=== PATIENT | male | born 1950 | race Caucasian/White ===

== ENCOUNTER 2025-04-09 12:25 | Outpatient (OUT) | payer SELFPAY ==
--- OUTSIDE RECORDS SUMMARY | 2025-04-09 12:33 | XMS_ITS | Encounter Summary ---
Author Organization [employer] Address [facility] [place]-[id number] [address] [place] [address] Care Team Providers Care Automobile Body Repairer Name Role Phone Mally Monzon MD Primary Care Provider [phone] Encounter Details Date Type Department Care Team (Late st Contact Info) Description 11/07/2023 Orders Only [facility] [address] [place] [address] [place] [address] External, Scanning Provider Social History Tobacco Use Types Packs/Day Years Used Date Smoking Tobacco: Former Smokeless Tobacco: Never Alcohol Use Standard Drinks/Week Comments Yes 0 (1 standard drink = 0.6 oz pur e alcohol) AUDIT-C Answer Date Recorded Q1: How often do you have a drink containing alc ohol? Monthly or less 06/05/2020 Q2: How many drinks containi ng alcohol do you have on a typical day when you are drinking? 1 or 2 06/05/2020 Q3: How often do you have si x or more drinks on one occasion? Less than monthly 06/05/2020 PHQ-2 Answer Date Recorded Total Score 1 11/06/2023 Childcare Answer Date Recorded Childcare Unknown 12/19/2018 Employment Answer Date Recorded Employment Unknown 12/19/2018 Hunger Screening Answer Date Recorded Within the past 12 months we worried whether our food would run out before we got money to buy more. Never True 10/04/2023 Within the past 12 months th e food we bought just didn't last and we didn't have money to get more. Never True 10/04/2023 Purpose - Life Answer Date Recorded Purpose and direction in life Unknown Sex and Gender Information Value Date Recorded Sex Assigned at Not on file Legal Sex Male 11:32 AM EDT Gender Identity Not on file Sexual Orientation Not on file documented as of this encounter Plan of Treatment Not on file documented as of this encounter Goals Goal Patient Goal Type Associated Problems Recent Progress Patient-Stated? Author Safe transition home with spouse General Yes Neha Gordon, CLOTHING PATTERNMAKER Note: Evaluation of progress towards goal: Safe transition home with spouse documented as of this encounter Visit Diagnoses Not on filedocumented in this encounter Additional Health Concerns Assessment Noted Time PHQ-9 Depression Total Score: 1 11/06/19 24 2:00 PM EDT documented as of this encounter Care Teams Automobile Body Repairer Relationship Specialty Start Date End Date Mally Monzon MD [address] [facility] [place] [address] PCP - General Internal Medicine 10/04/23 documented as of this encounter
--- OUTSIDE RECORDS SUMMARY | 2025-04-09 12:33 | XMS_ITS | Encounter Summary ---
Author Organization [employer] Address [facility] [id number] [address] [place] [address] Care Team Providers Care Charge Poster Name Role Phone Mally Monzon MD Primary Care Provider [phone] Encounter Details Date Type Department Care Team (Late st Contact Info) Description 04/04/2025 Telephone [facility] [address] [place] [address] [address] [place] [address] Mally Monzon MD [address] [place], [place] [id number] Social History Tobacco Use Types Packs/Day Years Used Date Smoking Tobacco: Former Smokeless Tobacco: Never Alcohol Use Standard Drinks/Week Comments Yes 0 (1 standard drink = 0.6 oz pur e alcohol) rare AUDIT-C Answer Date Recorded Q1: How often [...] 06/05/2020 PHQ-2 Answer Date Recorded Total Score 3 11/06/2024 Childcare Answer Date Recorded Childcare Unknown 12/19/2018 Employment Answer Date Recorded Employment Unknown 12/19/2018 Hunger Screening Answer Date Recorded Within the past 12 months we worried whether our food would run out before we got money to buy more. Never True 11/06/2024 Within the past 12 months th e food we bought just didn't last and we didn't have money to get more. Never True 11/06/2024 Purpose - Life Answer Date Recorded Purpose and direction in life Unknown Sex and Gender Information Value Date Recorded Sex Assigned at Not on file Legal Sex Male 11:32 AM EDT Gender Identity Not on file Sexual Orientation Not on file documented as of this encounter Progress Notes * Serafin Casey - 04/04/2025 11:54 AM EDT Patient contacted for enrollment in chronic care management program. Left message on machine. Callback number provided. documented in this encounter Plan of Treatment Not on file documented as of this encounter Goals Goal Patient Goal Type Associated Problems Recent Progress Patient-Stated? Author Safe transition home with spouse General Yes Neha Gordon, PERSONNEL ASSOCIATE Note: Evaluation of progress towards goal: Safe transition home with spouse documented as of this encounter Visit Diagnoses Not on filedocumented in this encounter Additional Health Concerns Assessment Noted Time PHQ-9 Depression Total Score: 3 11/07/19 25 3:33 PM EDT documented as of this encounter Care Teams Charge Poster Relationship Specialty Start Date End Date Mally Monzon MD [address] [facility] [place] [address] PCP - General Internal Medicine 10/04/23 documented as of this encounter
--- OUTSIDE RECORDS SUMMARY | 2025-04-09 12:33 | XMS_ITS ---
Author Organization [employer] [facility] Address [facility] [id number] [address] [place] [address] Care Team Providers Care Tax Compliance Officer Name Role Phone Mally Monzon MD Primary Care Provider [phone] Dialysis Access Sites Type Status Location Placement Date Removal Da te Hemodialysis Catheter Triple 06/08/20 Uncuffed Right Internal Jugular Inactive Right Neck (side) - Anterior 06/08/2020 06/13/2020 Procedures Procedure Name Priority Date/Time Associated Diagnosis Comments US RETROPERITONEAL COMPLETE Routine 07/06/2020 1:35 PM EST Acute renal failure, unspecified acute renal failure type (CMS-HCC) from Last 3 Months or Most Recently Relevant to Health Maintenance Allergies Active Allergy Reactions Criticality Noted Date Comments Atorvastatin 08/31/2022 Ezetimibe 08/31/2022 Muscle pain Metformin Diarrhea Low 08/31/2022 Pravastatin 08/31/2022 Simvastatin 08/31/2022 Muscle pain Medications aspirin-calcium carbonate 81 mg-300 mg calcium(777 mg) tablet Take 81 mg by mouth in the morning. Active cyanocobalamin (VITAMIN B-12) 100 MCG tablet Take 0.5 tablets (50 mcg total) by mouth in the morning. Active cholecalciferol , vitamin D3, 2,000 units capsule Take 1 capsule (2,000 Units total) by mouth in the morning. Active lisinopriL (PRINIVIL,ZESTR IL) 20 mg tablet Take 1 tablet (20 mg total) by mouth in the morning. Active rosuvastatin (CRESTOR) 5 mg tablet Take 1 tablet (5 mg total) by mouth in the morning. Monday. Active magnesium oxide (MAGOX) 400 mg tablet Take 420 mg by mouth in the morning. Active insulin aspart U-100 (NovoLOG) 100 unit/mL injectionIndica tions:Type 2 diabetes mellitus with diabetic polyneuropathy, with long-term current use of insulin ([facility] [place] [place]) Sliding scale before meals 3 times daily Active insulin glargine (LANTUS) 100 unit/mL injectionIndica tions:Type 2 diabetes mellitus with diabetic polyneuropathy, with long-term current use of insulin ([facility] [place] [place]) Inject 0.52 mL (52 Units total) under the skin in the morning. Active Active Problems Problem Noted Date Diagnosed Date Medicare annual wellness visit, subsequent 11/06 At moderate risk for fall 11/06/2024 Assessment & Plan (11/06/2024 5:13 PM EDT): Due to polyneuropathy that patient experiences with sensation of attempting to walk on a rolling deck. Continue to use cane to help with balance. Discussed with patient and that he may benefit from physical therapy to help with balance and gait Class 1 obesity due to exces s calories without serious comorbidity with body mass index (BMI) of 34.0 to 34.9 in adult 11/06/2024 Assessment & Plan (11/06/2024 5:19 PM EDT): Discussed with patient and the importance of dietary changes to help with weight loss. Gradual weight loss can help minimize chronic health issues associated with obesity Peripheral polyneuropathy 08/31/2022 Type 2 diabetes mellitus wit h diabetic polyneuropathy, with long-term current use of insulin 08/31/2022 Assessment & Plan (11/06/2024 5:15 PM EDT): Most recent hemoglobin A1c from August 2024 was 7.1%. Patient is tolerating his current regimen. Continue with long-acting insulin 52 units daily and short- acting insulin sliding scale before meals. COVID-19 06/05/2020 Immunizations Immunization Administration Dates Next Due DTaP, Unspecified 11/21/2013 Influenza High Dose Preservative Free IM 025,05/11/2020,06/18/2019 Influenza Vaccine, Quadrivalent, Adjuvanted 04/11 Influenza, High-dose, Quadrivalent 04/27/2022, Pneumococcal Conjugate 13-Valent 11/19/2015 Pneumococcal Polysaccharide 07/10/2013 Pneumococcal, Unspecified 04/03/2014 Zoster Vaccine Recombinant 11/02/2018,04/20/2018 Social History Tobacco Use Types Packs/Day Years Used Date Smoking Tobacco: Former Smokeless Tobacco: Never Tobacco Cessation:Counseling Given: Not Answered Alcohol Use Standard Drinks/Week Comments Yes 0 [...] on file Sexual Orientation Not on file Last Filed Vital Signs Vital Sign Reading Time Taken Comments Blood Pressure 120/82 11/06/2024 2:30 PM EDT Pulse 95 11/06/2024 2:30 PM EDT Temperature 36.9 C (98.4 F) 11/06/2024 2:30 PM EDT Respiratory Rate 16 10/04/2023 11:4 5 PM EDT Oxygen Saturation 96% 11/06/2024 2:30 PM EDT Inhaled Oxygen Concentration - - Weight 121.4 kg (267 lb 9.6 oz) 11/06/2024 2:30 PM EDT Height 188 cm (6' 2 ) 11/06/2024 2:30 PM EDT Body Mass Index 34.36 11/06/2024 2:30 PM EDT Results * Ultrasound retroperitoneal complete (07/06/2020 1:35 PM EST) Anatomical Region Laterality Modality Pelvis, Body Ultrasound 07/06/2020 2:39 PM EST Narrative 07/06/2020 2:48 PM EST ULTRASOUND RETROPERITONEUM INDICATION: Acute renal failure. COMPARISON: 10/13/2014 FINDINGS: Ultrasound evaluation of the kidneys and bladder was performed. Right kidney: 11.3 cm in maximal length. No collecting system dilatation, calculi, or contour deforming mass lesion. Preserved corticomedullary differentiation. Left kidney: 11.6 cm in maximal length. No collecting system dilatation, calculi, or contour deforming mass lesion. Preserved corticomedullary differentiation. Bladder: Unremarkable fluid filled bladder. Both ureteral jets seen. Visualized liver demonstrates mildly diffusely increased echogenicity. IMPRESSION: 1. No acute abnormality. No stone or collecting system dilatation. 2. Findings suggesting hepatic steatosis. Finalized by Musa Guerrero MD on 07/06/2020 2:48 PM Procedure Note Musa Guerrero MD - 07/06/2020 ULTRASOUND RETROPERITONEUM INDICATION: Acute renal failure. COMPARISON: 10/13/2014 FINDINGS: Ultrasound evaluation of the kidneys and bladder wasperformed. Right kidney: 11.3 cm in maximal length. No collecting system dilatation,calculi, or contour deforming mass lesion. Preserved corticomedullarydifferentiation. Left kidney: 11.6 cm in maximal length. No collecting system dilatation,calculi, or contour deforming mass lesion. Preserved corticomedullarydifferentiation. Bladder: Unremarkable fluid filled bladder. Both ureteral jets seen. Visualized liver demonstrates mildly diffusely increased echogenicity. IMPRESSION: 1. No acute abnormality. No stone or collecting system dilatation. 2. Findings suggesting hepatic steatosis. Finalized by Musa Guerrero MD on 07/06/2020 2:48 PM us Denver Sahu [employer]GOT PASSER-SHOE SHINER IMG US ORDERABLES Final R esult from Last 3 Months or Most Recently Relevant to Health Maintenance
--- OUTSIDE RECORDS SUMMARY | 2025-04-09 12:33 | XMS_ITS | Clinical Summary ---
Author Organization [facility] Address [id number] [address] [place] [address] Care Team Providers Care Lidar Analyst Name Role Phone Mally Monzon MD Primary Care Provider [phone] Allergies Active Allergy Reactions Criticality Noted Date [...] polyneuropathy, with long-term current use of insulin ([facility] [place]) Sliding scale before meals 3 times daily Active insulin glargine (LANTUS) 100 unit/mL injectionIndica tions:Type 2 diabetes mellitus with diabetic polyneuropathy, with long-term current use of insulin ([facility]) Inject 0.52 mL (52 Units total) under [...] insulin sliding scale before meals. COVID-19 06/05/2020 Encounters Date Type Department Care Team Description 04/04/2025 Telephone [facility] [address] [place] [address] Mally Monzon MD from Last 3 Months Immunizations Immunization Administration Dates Next Due DTaP, Unspecified 11/21/2013 Influenza High Dose Preservative Free IM 025,05/11/2020,06/18/2019 Influenza Vaccine, Quadrivalent, Adjuvanted 04/11 Influenza, High-dose, Quadrivalent 04/27/2022, Pneumococcal Conjugate 13-Valent 11/19/2015 Pneumococcal Polysaccharide 07/10/2013 Pneumococcal, Unspecified 04/03/2014 Zoster Vaccine Recombinant 11/02/2018,04/20/2018 Family History Relation Name Status Comments Father Mother Social History Tobacco Use Types Packs/Day Years [...] Mass Index 34.36 11/06/2024 2:30 PM EDT Plan of Treatment Health Maintenance Due Date Last Done Comments DTaP,Tdap and Td Vaccines (2 - Tdap) 11/22/2023 11/21/2013 COVID-19 Vaccine (2024-2 6 season) 2025 05/17/2023, 05/16/2022, 01/22/2022, Additional history exists Influenza Vaccine 03/10/2025 08/30/2024, , 04/27/2022, Additional history exists Depression Screening 11/06/2025 11/06/2024 Fall Risk Screening 11/06/2025 11/06/2024 Medicare Annual Wellness Visit 11/06/2025 11/06/2024 , 11/06/2023 Tobacco Screening 11/06/2025 11/06/2024 Zoster (Shingles) Vaccine Completed 11/02/2018, 06/2018 Abdominal Aortic Aneurysm (A AA) Screen Completed 07/06/2020 Goals Goal Patient Goal Type Associated Problems Recent Progress Patient-Stated? Author Safe transition home with spouse General Yes Neha Gordon, PIA Note: Evaluation of progress towards goal: Safe transition home with spouse Medical Devices Not on file Procedures Procedure Name Priority Date/Time Associated Diagnosis Comments US RETROPERITONEAL COMPLETE Routine 07/06/2020 1:35 PM EST Acute renal failure, unspecified acute renal failure type ([facility]) from Last 3 Months or Most Recently Relevant to Health Maintenance Results * Ultrasound retroperitoneal complete (07/06/2020 1:35 [...] Musa Guerrero MD on 07/06/2020 2:48 PM Denver Sahu LPTA-FUNERAL SERVICE PRACTITIONER/[facility] ORDERABLES Final R esult from Last 3 Months or Most Recently Relevant to Health Maintenance Insurance MEDICARE [facility] Advance Directives * Full Code (Latest Code Status on File) Date Activated Date Inactivated Comments 06/07/2020 1:29 PM 06/13/2020 9:06 PM Care Teams Lidar Analyst Relationship Specialty Start Date End Date Mally Monzon MD [address], [place] [address] PCP - General Internal Medicine 10/04/23
--- OUTSIDE RECORDS SUMMARY | 2025-04-09 12:33 | XMS_ITS | Clinical Summary ---
Author Organization [facility] Address [facility], [address] [place] [address] Care Team Providers Care Developer Support Engineer Name Role Phone Unavailable Primary Care Provider Unavailabl e Allergies No known active allergies Medications atenolol (TENORMIN) 25 MG tabletIndicatio ns:1/ tab Take 25 mg by mouth every morning Active lisinopril-hydr ochlorothiazide (PRINZIDE;ZESTO RETIC) 20-25 MG per tablet Take 1 tablet by mouth daily Active metFORMIN (GLUCOPHAGE) 1000 MG tablet Take 1,000 mg by mouth 2 times daily (with meals) Active Insulin Aspart (NOVOLOG FLEXPEN SC) Inject into the skin as needed Active insulin glargine (LANTUS) 100 UNIT/ML injection vial Inject into the skin nightly Active aspirin 81 MG tablet Take 81 mg by mouth daily Active Cholecalciferol (VITAMIN D3) 2000 units CAPS Take by mouth Active Turmeric 500 MG CAPS Take by mouth Active vitamin B-12 (CYANOCOBALAMIN ) 100 MCG tablet Take 50 mcg by mouth daily Active Cranberry 450 MG CAPS Take by mouth Active Multiple Vitamins-Minera ls (MULTIVITAMIN WITH MINERALS) tablet Take 1 tablet by mouth daily Active magnesium 30 MG tablet Take 30 mg by mouth 2 times daily Active Active Problems Problem Noted Date Diagnosed Date Chronic pain of left knee 05/23/2017 Social History Tobacco Use Types Packs/Day Years Used Date Smoking Tobacco: Former Smokeless Tobacco: Never Sex and Gender Information Value Date Recorded Sex Assigned at Not on file Legal Sex Male 12:42 PM EDT Gender Identity Not on file Sexual Orientation Not on file Last Filed Vital Signs Vital Sign Reading Time Taken Comments Blood Pressure 123/69 05/23/2017 8:56 AM EST Pulse 88 05/23/2017 8:56 AM EST Temperature 36.7 C (98.1 F) 05/23/2017 8:19 AM EST Respiratory Rate 18 05/23/2017 8:56 AM EST Oxygen Saturation 99% 05/23/2017 8:56 AM EST Inhaled Oxygen Concentration - - Weight 111.1 kg (245 lb) 05/23/2017 8:19 AM EST Height 188 cm (6' 2 ) 05/23/2017 8:19 AM EST Body Mass Index 31.46 05/23/2017 8:19 AM EST Plan of Treatment Not on file Insurance [address] [place] [address] MEDICARE [place] [employer] Advance Directives * Full Code (Latest Code Status on File) Date Activated Date Inactivated Comments 05/23/2017 8:13 AM 05/23/2017 11:32 AM
--- OUTSIDE RECORDS SUMMARY | 2025-04-09 12:33 | XMS_ITS | Encounter Summary ---
Author Organization [employer] Address [id number] [address] [place] [address] Care Team Providers Care Rehab Tech Name Role Phone Mally Monzon MD Primary Care Provider [phone] Encounter Details Date Type Department Care Team (Late st Contact Info) Description 03/14/2023 Orders Only [facility] [address] [place] [address] [place] [address] External, Scanning Provider Social History [...] 06/05/2020 PHQ-2 Answer Date Recorded Total Score 0 08/31/2022 Childcare Answer Date Recorded Childcare Unknown 12/19/2018 Employment Answer Date Recorded Employment Unknown 12/19/2018 Hunger Screening Answer Date Recorded Within the past 12 months we worried whether our food would run out before we got money to buy more. Never True 08/31/2022 Within the past 12 months th e food we bought just didn't last and we didn't have money to get more. Never True 08/31/2022 Purpose - Life Answer Date Recorded Purpose [...] home with spouse General Yes Neha Gordon, CLINICAL PRACTICE CONSULTANT Note: Evaluation of progress towards goal: Safe transition home with spouse documented as of this encounter Visit Diagnoses Not on filedocumented in this encounter Additional Health Concerns Assessment Noted Time PHQ-9 Depression Total Score: 0 08/31/19 23 1:54 PM EST documented as of this encounter Care Teams Rehab Tech Relationship Specialty Start Date End Date Mally Monzon MD [address] [facility] [place] [address] PCP - General Internal Medicine 10/04/23 documented as of this encounter
--- OUTSIDE RECORDS SUMMARY | 2025-04-09 12:33 | XMS_ITS | Clinical Summary ---
Author Organization [facility] Address [address] [place] [address] Phone Care Team Providers Care Technical Support Coordinator Name Role Phone Unavailable Primary Care Provider Unavailabl e Social History Tobacco Use Types Packs/Day Years Used Date Smoking Tobacco: Never Assessed Sex and Gender Information Value Date Recorded Sex Assigned at Not on file Legal Sex Male 2:06 PM EST Gender Identity Not on file Sexual Orientation Not on file Plan of Treatment Not on file
--- OUTSIDE RECORDS SUMMARY | 2025-04-09 12:33 | XMS_ITS | Clinical Summary ---
Author Organization [facility] Address [address] [place], [place] [address] Care Team Providers Care Kindergarten Prep Teacher Name Role Phone Ole Sullivan Luo Primary Care Provider [phone] Allergies Active Allergy Reactions Criticality Noted Date Comments Oxycodone Klj-Ruhzhqpav-Pcj Mental Statu s Change,Vomiting 03/26/2013 Medications Insulin NPH-Regular Human Rec (HUMULIN 70/30 PEN) 100 unit/mL (70-30) InPn Inject 35 Units subcutaneously once daily. Active METFORMIN HCL (METFORMIN ORAL) Take 1,000 mg by mouth twice daily. Active lisinopril 10 mg tablet Take 10 mg by mouth once daily. Active naproxen sodium (ALEVE) 220 mg tablet Take 220 mg by mouth twice daily with meals. Active ibuprofen (MOTRIN IB) 200 mg tablet Take 200 mg by mouth every 6 hours as needed. Active Social History Tobacco Use Types Packs/Day Years Used Date Smoking Tobacco: Never Assessed Sex and Gender Information Value Date Recorded Sex Assigned at Not on file Legal Sex Male 2:50 PM EDT Gender Identity Not on file Sexual Orientation Not on file Plan of Treatment Health Maintenance Due Date Last Done Comments Anxiety Screening 1966 Depression Screening 1966 Hepatitis C Screening 1966 DTaP,Tdap,Td Vaccine (1 - Tdap) 1967 Diabetes Screening 1993 Pneumococcal Vaccine: 50+ (1 of 1 - PCV) 1998 Shingrix Vaccine (1 of 2) 1998 RSV Vaccine (1 - 1-dose 75+ series) 2023 Advance Directive Discussion 07/10/2024 Influenza Vaccine (#1) 2025 Insurance [employer] [facility] PPO Care Teams Kindergarten Prep Teacher Relationship Specialty Start Date End Date Ole Sullivan PCP - General Family Medicine 03/14/13
--- NOTE | 2025-04-09 12:55 | CT_ITS ---
The [address] [address] Patient Name: MANDY MCKEON MRN: [id number] date: 1950 Sex: M Assigned Patient Location: LAB Current Patient Location: Accession/Order Number: [id number] Exam Date: 04/09/2025 13:40 Report Date: 04/10/2025 09:06 At the request of: NON-STAFF PHYSICIAN Procedure: CT abdomen wo/w con CT ABDOMEN WITHOUT AND WITH INTRAVENOUS CONTRAST COMPARISON: None CLINICAL DATA: Elevated bilirubin Spiral images were obtained through the abdomen before and after intravenous administration of 100 mL of Omnipaque 300. This CT exam was performed using one or more following dose reduction techniques: Automated exposure control, adjustment of the mA and/or kV according to patient size, or use of iterative reconstruction technique. Limited cuts through the lung bases show minimal linear scarring or atelectasis. There are calcifications along the periphery of the gallbladder. This might be cholelithiasis however wall calcification is not excluded. There is no biliary dilatation or common duct stones. There are some calcifications within the left hepatic lobe. No hepatic masses are identified. There is a small splenic hypodensity that might be a cyst. The pancreas and adrenal glands show no acute findings. There is bilateral perinephric fibrofatty stranding. Precontrast, there is an equivocal tiny stone at the lower pole of the left kidney. No ureteral dilatation or stones are seen in the field of view. No hydronephrosis is identified. The abdominal aorta is normal caliber and there is minimal plaque. There are small abdominal lymph nodes. No ascites is seen. The small bowel loops are not disproportionately distended though there are some that contain fluid. There is partial right colectomy. There is fluid and stool within the colon. There are left-sided colonic diverticula. Levoscoliotic curvature and degenerative changes are present at the lumbar spine with associated stenosis. CT/CT abdomen wo/w con IMPRESSION: CHOLELITHIASIS AND/OR GALLBLADDER WALL CALCIFICATION. FOLLOW-UP ULTRASOUND COULD BE CONSIDERED. NO BILIARY DILATATION OR HEPATIC ABNORMALITIES. NO SUSPECTED BOWEL OR URINARY TRACT OBSTRUCTION. MILD DIVERTICULOSIS. Impression dictated by: Stephanie Greene M.D. 04/10/2025 9:06 AM Dictation Location: [place] [address] Electronically authenticated by: [id number] Date: 04/10/2025 09:06
[2025-04-09 13:36] LABS: Estimated GFR (African America >60 (>=60 mL/min/1.73m^2); Estimated GFR (Non-African Ame >60 (>=60 mL/min/1.73m^2)
== END 2025-04-09 12:26 | disposition home or self-care (01) ==
LOC: LAB 12:32
PROVIDERS: Pathology Anatomic Pathology & Clinical Pathology; PCP Family Medicine
DX: Z01.818 Encounter for other preprocedural examination (principal); E80.6 Other disorders of bilirubin metabolism; K57.90 Diverticulosis of intestine, part unspecified, without perforation or abscess without bleeding
CPT/HCPCS: 36415; 74170; 82565; Q9967

== ENCOUNTER 2025-04-23 09:53 | Outpatient (OUT) | payer OTHER, SELFPAY ==
--- NOTE | 2025-04-23 10:00 | US_ITS ---
The [address] [address] Patient Name: MANDY MCKEON MRN: [id number] date: 1950 Sex: M Assigned Patient Location: US Current Patient Location: Accession/Order Number: [id number] Exam Date: 04/23/2025 10:01 Report Date: 04/23/2025 11:15 At the request of: NON-STAFF PHYSICIAN Procedure: US right upper quadrant LIMITED RIGHT UPPER QUADRANT ABDOMINAL ULTRASOUND CLINICAL HISTORY: Abdominal CT follow-up COMPARISON: CT 04/09/2025 Evaluation is limited by body habitus, bowel gas, poor acoustic windows and intercostal scanning. The gallbladder is partially distended. There is an echogenic rim and shadowing. This could be a gallbladder full of stones however gallbladder wall calcification is also possible. No pericholecystic fluid is seen. No intrahepatic biliary dilatation is evident. The common duct is borderline prominent measuring 5 - 6 mm. The liver parenchyma shows increased echogenicity and decreased penetration suggesting fatty infiltration. No focal intrahepatic masses are seen. There is appropriate hepatopetal flow within the main portal vein. Limited visualization pancreas shows no significant sonographic abnormality. Cursory evaluation of the right kidney reveals no hydronephrosis or fluid within Doherty's pouch. US/US right upper quadrant IMPRESSION: LIMITED STUDY, DESCRIBED. SUSPECTED FATTY LIVER. CHOLELITHIASIS AND/OR GALLBLADDER WALL CALCIFICATION. DIFFERENTIATION IS STILL LIMITED, PARTICULARLY GIVEN THE QUALITY OF THE STUDY. Impression dictated by: Stephanie Greene M.D. 04/23/2025 11:15 AM Dictation Location: [place] [address] Electronically authenticated by: [id number] Y Date: 04/23/2025 11:15
== END 2025-04-23 09:54 | disposition home or self-care (01) ==
LOC: US 09:53
PROVIDERS: PCP Family Medicine
DX: K81.9 Cholecystitis, unspecified (principal)
CPT/HCPCS: 76705